=== PATIENT | female | born 1960 | race Caucasian/White ===

== ENCOUNTER 2018-01-07 19:26 | Emergency (ER) | payer BC ==
--- NOTE | 2018-01-07 19:33 | ER Report ---
History and Physical Time Seen By MD: 19:33 HPI/ROS CHIEF COMPLAINT: Near syncope HISTORY OF PRESENT ILLNESS: His is a 57-year-old female who presents to the emergency department via EMS for a near-syncopal episode. Patient and her are traveling through from [place], she states she's been sick with cold symptoms for about one week. She's had a cough progressively getting worse , patient states that today she had quite a few cough drops very little to eat or drink and they were at dinner tonight and she was sitting down and started to stand up and had a syncopal episode where she fell to the ground. Her states that when she fell of the ground her eyes fluttered a little bit she woke up immediately after this tried to stand up and had a another near- syncopal episode. EMS was called. Patient was transported to the emergency department for further evaluation. Patient arrives alert and oriented interacting well and at baseline according to her . Patient denies nausea , vomiting, loss of bowel or bladder, no headaches, no chest pain or shortness of breath. REVIEW OF SYSTEMS: Constitutional: No fever, no chills. Eyes: No discharge. ENT: No sore throat. Cardiovascular: No chest pain, no palpitations. Respiratory: No cough, no shortness of breath. Gastrointestinal: No abdominal pain, no vomiting. Genitourinary: No hematuria. Musculoskeletal: No back pain. Skin: No rashes. Neurological: As above. Allergies: Coded Allergies: No Known Drug Allergies (Unverified , 01/07/18) Home Meds Active Scripts Cephalexin 500 Mg Tab (KEFLEX 500 MG TAB) 500 Mg Tablet, 500 MG PO BID for 7 Days, #12 TAB 0 Refills Prov:CARLO AMARAL PATIENT RESOURCE COORDINATOR- 01/07/18 Reported Medications [Loratidine] No Conflict Check 01/07/18 Amoxicillin 500 Mg Tab (AMOXICILLIN 500 MG TAB) 500 Mg Tablet, 1 TAB PO Q8H, TAB 01/07/18 Past Medical/Surgical History The patient has as a past medical and surgical history of left femur fracture, sinus infection. Reviewed Nurses Notes: Yes Constitutional Vital Sign - Last 24 Hours 01/07/18 01/07/18 01/07/18 01/07/18 19:26 19:29 19:36 19:41 Temp 97.3 Pulse ??? 66 68 Resp 16 10 B/P (MAP) 149/96 149/96 (113) Pulse Ox 98 97 O2 Delivery Room Air 01/07/18 01/07/18 01/07/18 01/07/18 19:45 19:56 19:58 19:59 Pulse 72 Resp 15 B/P (MAP) 115/81 (92) 120/74 (89) 119/78 (92) Pulse Ox 97 01/07/18 01/07/18 01/07/18 01/07/18 20:01 20:11 20:15 20:26 Pulse ? B/P (MAP) 114/63 (80) 126/76 (93) 01/07/18 01/07/18 01/07/18 01/07/18 20:30 20:41 20:45 20:50 Pulse ??? 97 B/P (MAP) 129/81 (97) 134/81 (98) Pulse Ox 95 01/07/18 01/07/18 01/07/18 01/07/18 21:00 21:05 21:05 21:05 Pulse 83 77 Resp 18 B/P (MAP) 127/81 (96) Pulse Ox 97 96 O2 Delivery Room Air 01/07/18 01/07/18 01/07/18 01/07/18 21:11 21:15 21:20 21:25 Pulse 73 86 ??? Resp 18 B/P (MAP) 134/84 (101) Pulse Ox 95 01/07/18 21:30 B/P (MAP) ???/??? (1665) Intake and Output 01/07/18 01/07/18 01/08/18 15:00 23:00 07:00 Intake Total 1000 ml Balance 1000 ml Physical Exam General Appearance: The patient is alert, has no immediate need for airway protection and no signs of toxicity. Eyes: Pupils equal and round no pallor or injection. ENT, Mouth: Mucous membranes are moist. Respiratory: There are no retractions, lungs are clear to auscultation. Cardiovascular: Regular rate and rhythm, no murmurs, clicks or rubs. Gastrointestinal: Abdomen is soft and non tender, no masses, bowel sounds normal. Neurological: Alert and oriented 4. Moving all extremities. Following all commands. No focal neuro deficits. Cranial nerves II through XII intact. Skin: Warm and dry, no rashes. Musculoskeletal: Neck is supple non tender. Extremities are nontender, nonswollen and have full range of motion. DIFFERENTIAL DIAGNOSIS: After history and physical exam differential diagnosis was considered for syncope including but not limited to vasovagal syncope, arrhythmia, dehydration, and blood loss. Medical Decision Making Data Points Result Diagram: 01/07/18 0000 01/07/18 0000 Laboratory Hematology Test 01/07/18 00:00 Red Blood Count 4.49 M/uL (4.17-5.56) Mean Corpuscular Volume 92.2 fL (80.0-96.0) Mean Corpuscular Hemoglobin 31.4 pg (26.0-33.0) Mean Corpuscular Hemoglobin Concent 34.0 g/dL (32.0-36.0) Red Cell Distribution Width 13.1 % (11.5-14.5) Mean Platelet Volume 8.6 fL (7.2-11.1) Neutrophils (%) (Auto) 18.8 % (39.4-72.5) Lymphocytes (%) (Auto) 68.3 % (17.6-49.6) Monocytes (%) (Auto) 10.7 % (4.1-12.4) Eosinophils (%) (Auto) 1.4 % (0.4-6.7) Basophils (%) (Auto) 0.8 % (0.3-1.4) Nucleated RBC Relative Count (auto) 0.1 /100WBC Neutrophils # (Auto) 0.9 K/uL (2.0-7.4) Lymphocytes # (Auto) 3.1 K/uL (1.3-3.6) Monocytes # (Auto) 0.5 K/uL (0.3-1.0) Eosinophils # (Auto) 0.1 K/uL (0.0-0.5) Basophils # (Auto) 0.0 K/uL (0.0-0.1) Nucleated RBC Absolute Count (auto) 0.00 K/uL Peripheral Blood Smear Yes Y/N Urine Color Yellow Urine Clarity Slightly-cloudy Urine pH 6.0 pH (4.8-9.5) Urine Specific [place] 1.017 Urine Protein Negative mg/dL (NEGATIVE) Urine Glucose (UA) Negative mg/dL (NEGATIVE) Urine Ketones Negative mg/dL (NEGATIVE) Urine Blood Negative (NEGATIVE) Urine Nitrite Negative (NEGATIVE) Urine Bilirubin Negative (NEGATIVE) Urine Urobilinogen Negative mg/dL (0.2-1.9) Urine Leukocyte Esterase Large (NEGATIVE) Urine RBC 2 /HPF (0-2/HPF) Urine WBC 59 /HPF (0-5/HPF) Urine Squamous Epithelial Cells Many /LPF (</=FEW) Urine Bacteria Negative /HPF (NONE-FEW) Urine Hyaline Casts Moderate /LPF (NONE-FEW) Urine Mucus None /HPF (NONE-FEW) Sodium Level 135 mmol/L (137-145) Potassium Level 3.5 mmol/L (3.5-5.0) Chloride Level 98 mmol/L (98-107) Carbon Dioxide Level 25 mmol/L (22-31) Blood Urea Nitrogen 9 mg/dl (7-18) Creatinine 0.80 mg/dl (0.52-1.04) Glomerular Filtration Rate Calc > 60.0 Random Glucose 156 mg/dl (75-110) Calcium Level 9.0 mg/dl (8.4-10.2) Total Bilirubin 0.5 mg/dl (0.2-1.3) Aspartate Amino Transf (AST/SGOT) 37 U/L (0-35) Alanine Aminotransferase (ALT/SGPT) 40 U/L (0-56) Alkaline Phosphatase 86 U/L (0-126) Troponin I < 0.012 ng/ml Total Protein 7.3 gm/dl (6.3-8.2) Albumin 4.2 g/dl (3.5-5.0) Chemistry Test 01/07/18 00:00 White Blood Count 4.6 k/uL (4.5-11.0) Red Blood Count 4.49 M/uL (4.17-5.56) Hemoglobin 14.1 g/dL (12.0-16.0) Hematocrit 41.4 % (34.0-47.0) Mean Corpuscular Volume 92.2 fL (80.0-96.0) Mean Corpuscular Hemoglobin 31.4 pg (26.0-33.0) Mean Corpuscular Hemoglobin Concent 34.0 g/dL (32.0-36.0) Red Cell Distribution Width 13.1 % (11.5-14.5) Platelet Count 187 K/uL (150-450) Mean Platelet Volume 8.6 fL (7.2-11.1) Neutrophils (%) (Auto) 18.8 % (39.4-72.5) Lymphocytes (%) (Auto) 68.3 % (17.6-49.6) Monocytes (%) (Auto) 10.7 % (4.1-12.4) Eosinophils (%) (Auto) 1.4 % (0.4-6.7) Basophils (%) (Auto) 0.8 % (0.3-1.4) Nucleated RBC Relative Count (auto) 0.1 /100WBC Neutrophils # (Auto) 0.9 K/uL (2.0-7.4) Lymphocytes # (Auto) 3.1 K/uL (1.3-3.6) Monocytes # (Auto) 0.5 K/uL (0.3-1.0) Eosinophils # (Auto) 0.1 K/uL (0.0-0.5) Basophils # (Auto) 0.0 K/uL (0.0-0.1) Nucleated RBC Absolute Count (auto) 0.00 K/uL Peripheral Blood Smear Yes Y/N Urine Color Yellow Urine Clarity Slightly-cloudy Urine pH 6.0 pH (4.8-9.5) Urine Specific [place] 1.017 Urine Protein Negative mg/dL (NEGATIVE) Urine Glucose (UA) Negative mg/dL (NEGATIVE) Urine Ketones Negative mg/dL (NEGATIVE) Urine Blood Negative (NEGATIVE) Urine Nitrite Negative (NEGATIVE) Urine Bilirubin Negative (NEGATIVE) Urine Urobilinogen Negative mg/dL (0.2-1.9) Urine Leukocyte Esterase Large (NEGATIVE) Urine RBC 2 /HPF (0-2/HPF) Urine WBC 59 /HPF (0-5/HPF) Urine Squamous Epithelial Cells Many /LPF (</=FEW) Urine Bacteria Negative /HPF (NONE-FEW) Urine Hyaline Casts Moderate /LPF (NONE-FEW) Urine Mucus None /HPF (NONE-FEW) Glomerular Filtration Rate Calc > 60.0 Calcium Level 9.0 mg/dl (8.4-10.2) Total Bilirubin 0.5 mg/dl (0.2-1.3) Aspartate Amino Transf (AST/SGOT) 37 U/L (0-35) Alanine Aminotransferase (ALT/SGPT) 40 U/L (0-56) Alkaline Phosphatase 86 U/L (0-126) Troponin I < 0.012 ng/ml Total Protein 7.3 gm/dl (6.3-8.2) Albumin 4.2 g/dl (3.5-5.0) Urinalysis Test 01/07/18 00:00 Urine Color Yellow Urine Clarity Slightly-cloudy Urine pH 6.0 pH (4.8-9.5) Urine Specific [place] 1.017 Urine Protein Negative mg/dL (NEGATIVE) Urine Glucose (UA) Negative mg/dL (NEGATIVE) Urine Ketones Negative mg/dL (NEGATIVE) Urine Blood Negative (NEGATIVE) Urine Nitrite Negative (NEGATIVE) Urine Bilirubin Negative (NEGATIVE) Urine Urobilinogen Negative mg/dL (0.2-1.9) Urine Leukocyte Esterase Large (NEGATIVE) Urine RBC 2 /HPF (0-2/HPF) Urine WBC 59 /HPF (0-5/HPF) Urine Squamous Epithelial Cells Many /LPF (</=FEW) Urine Bacteria Negative /HPF (NONE-FEW) Urine Hyaline Casts Moderate /LPF (NONE-FEW) Urine Mucus None /HPF (NONE-FEW) EKG/Imaging EKG Interpretation 12 lead EKG: EKG time 1958. Rhythm: Normal sinus rhythm, ventricular rate 72 bpm. [place]: normal QRS: normal ST segments: No ST depression or elevation. Flattened T waves in V2, V3, no previous EKG to compare to. Imaging Location: [facility] Patient: Elvira Fischer : 1960 Visit/Account:[id number] Date of Sevice: 01/07/2018 EXAMINATION: Chest radiographs 2 views HISTORY: Near-syncope. Cough. COMPARISON: None. FINDINGS: PA and lateral views of the chest are submitted. Lines/tubes: None. Lungs/pleura: No focal consolidation or pleural effusion. Pulmonary vascularity is within normal limits. No evidence of pneumothorax. Heart: Normal heart size. Mediastinum: Calcified plaque at the aortic arch. Bony structures/body wall: Negative. IMPRESSION: No radiographic evidence of acute cardiopulmonary disease. Report Dictated By: Wilder Cruz MD at 01/07/2018 8:33 PM Report E-Signed By: Wilder Cruz MD at 01/07/2018 8:35 PM WSN:[id number] ED Course/Re-evaluation Clinical Indication for ER IV: Hydration, IV Access ED Course The patient was admitted to room. A history of physical were obtained. Differential diagnosis considered. An IV was started via EMS. A 1 L normal saline bolus was given. Orthostatic vital signs were unremarkable. A CBC, CMP and troponin were unremarkable. A UA was obtained showing a UTI. I did discuss repeating the troponin with the patient however she elected not to stay for a repeat troponin she said that she just wants to go home get some rest. I did explain to her that it's my recommendation that she stays to repeat a troponin however she still wanted to go home. A two-view chest x-ray was negative for any acute cardiopulmonary process. Patient was given DuoNeb for her cough with relief. Patient's antibiotic was changed from amoxicillin to Keflex to take care of the urinary tract infection as well as her sinus infection that she is being treated for. Patient was started on a Keflex dose in the emergency department and a prescription was sent home with the patient. The patient was also sent home with the pro-air inhaler for her cough. Patient states she does feel better after the bolus of normal saline. Patient has been up does have a steady gait has had no syncopal episodes in the emergency department. The patient and her understand that they can come back at any time for any other concerns that she may have even though she did sign out AMA. The patient and her had noted questions or concerns at this time and were discharged home. Patient was encouraged to follow up in the nearest emergency department if she has any subsequent syncopal episodes, patient was in agreement. Decision to Disposition Date: Jan 07, 2018 Decision to Disposition Time: 21:24 Depart Departure Latest Vital Signs Vital Signs Date Time Temp Pulse Resp B/P (MAP) Pulse Ox O2 Delivery O2 Flow Rate FiO2 01/07/18 21:30 ???/??? (1665) 01/07/18 21:25 ??? 01/07/18 21:20 95 01/07/18 21:11 18 01/07/18 21:05 Room Air 01/07/18 19:29 97.3 Impression: Primary Impression: Syncopal episodes Additional Impressions: Urinary tract infection Left against medical advice Condition: Improved Disposition: HOME OR SELF-CARE New Scripts Cephalexin 500 Mg Tab (KEFLEX 500 MG TAB) 500 Mg Tablet 500 MG PO BID for 7 Days, #12 TAB 0 Refills Prov: CARLO AMARAL 01/07/18 Patient Instructions: Syncope (ED) Additional Instructions: Drink plenty of fluids. Get plenty of rest. Stop your amoxicillin and start the Keflex, be sure to complete the Keflex course. Use the inhaler as needed for your cough. Try 1 tspn of Honey 4-5 times a day for your cough. Please follow up in the nearest ED if you have another syncopal episode. May return to the [facility] [place] for any other needs or concerns you may have. It was my recommendation you stay for a repeat Troponin, this is the reason for the AMA form. Even though you have singed out AMA you may return to the ED at any time for any concerns you may have. Problem Qualifiers Primary Impression: Syncopal episodes Syncope type: vasovagal syncope Qualified Codes: R55 - Syncope and collapse Additional Impressions: Urinary tract infection Urinary tract infection type: acute cystitis Hematuria presence: without hematuria Qualified Codes: N30.00 - Acute cystitis without hematuria CARLO AMARLA Jan 07, 2018 19:33
[2018-01-07] MEDS ORDERED: NS(*) 0.9% 1000 ML BAG 1,000 ML IV ONE (19:50)
[2018-01-07] MEDS ORDERED: LORATIDINE (19:53)
[2018-01-07] MEDS ORDERED: AMOX500T10 PO (19:53)
[2018-01-07 20:03] LABS: PLATELET COUNT, AUTOMATED 187 K/uL (150-450)
--- NOTE | 2018-01-07 20:17 | EKG ---
FACILITY: [facility] - [place] PATIENT NAME: BAILEY FAN : [id number] MR: [id number] V: [id number] EXAM DATE: ORDERING PHYSICIAN: CARLO AMARAL TECHNOLOGIST: ERIC Lopez Reason : NEAR SYNCOPE Blood Pressure : / mmHG Vent. Rate : 072 BPM Atrial Rate : 072 BPM P-R Int : 140 ms QRS Dur : 076 ms QT Int : 408 ms P-R-T Axes : 048 049 064 degrees QTc Int : 446 ms Normal sinus rhythm Nonspecific T wave abnormality Abnormal ECG No previous ECGs available Confirmed by NEY NGO ([id number]) on 01/08/2018 6:26:31 AM Referred By: Confirmed By:NEY NGO
--- NOTE | 2018-01-07 20:38 | RADIOLOGY IMAGING REPORT ---
[place] [facility] [place]IENT NAME: Elvira Fischer : 1960 MR: [id number] V: [id number] EXAM DATE: ORDERING PHYSICIAN: CARLO AMARAL TECHNOLOGIST: Location: [facility] Patient: Elvira Fischer : 1960 Visit/Account:[id number] Date of Sevice: 01/07/2018 EXAMINATION: Chest radiographs 2 views HISTORY: Near-syncope. Cough. COMPARISON: None. FINDINGS: PA and lateral views of the chest are submitted. Lines/tubes: None. Lungs/pleura: No focal consolidation or pleural effusion. Pulmonary vascularity is within normal leigh its. No evidence of pneumothorax. Heart: Normal heart size. Mediastinum: Calcified plaque at the aortic arch. Bony structures/body wall: Negative. IMPRESSION: No radiographic evidence of acute cardiopulmonary disease. Report Dictated By: Wilder Cruz MD at 01/07/2018 8:33 PM Report E-Signed By: Wilder Cruz MD at 01/07/2018 8:35 PM WSN:[id number]
[2018-01-07] MEDS ORDERED: ALBUTEROL/IPRATROPIUM 3 ML NEB NEB ONE (21:00)
[2018-01-07] MEDS ORDERED: ALBUTEROL SULFATE 90 MCG/ACT 8.5 GM HNH INH PRN (21:15)
[2018-01-07] MEDS ORDERED: CEPHALEXIN 500 MG CAP TH 2 CAP/BOTTLE PO ONE (21:15)
[2018-01-07] MEDS ORDERED: CEPH500T7 PO (21:17)
== END 2018-01-07 21:41 | disposition home or self-care (01) ==
LOC: ER 19:35
DX: R55 Syncope and collapse (principal); N39.0 Urinary tract infection, site not specified
CPT/HCPCS: 71046; 81001; 84484; 85025; 93005; 94640; 96360; 99284; J7030; J7620; 82040; 82247; 82310; 82374; 82435; 82565; 82947; 84075; 84132; 84155; 84295; 84450; 84460; 84520

== ENCOUNTER → 2018-01-07 | Outpatient (CLI) | payer BC ==
[~2018-01-07] MED LIST: AMOX500T10 PO; CEPH500T7 PO; LORATIDINE
== END ==
LOC: AMB 18:58
PROVIDERS: ATTEND Nurse Practitioner
DX: R56.9 Unspecified convulsions (principal); R53.1 Weakness; R53.83 Other fatigue; R00.1 Bradycardia, unspecified; I95.9 Hypotension, unspecified
CPT/HCPCS: A0425; A0427